=== PATIENT | male | born 1990 | race African-American/Black ===

== ENCOUNTER 2016-09-14 20:23 | Emergency (ER) | payer OTHER ==
--- NOTE | 2016-09-14 20:28 | PHYS DOC ---
General Stated Complaint: TAIL BONE INJURY Time Seen by MD: 20:27 Source: patient Problems: History of Present Illness Initial Comments Patient here for tailbone pain. Patient was playing basketball about a half- hour prior to arrival in emergency department when he fell on his tailbone. He says it hurts to walk. He had position himself an awkward fashion to drive himself here. His pain is located mostly over the low sacrum and coccyx area. He 's had no opportunity to the bathroom since. There's been no incontinence and no change amount of bladder habits. He says it hurts to move his legs and to walk, but he has no distal complaints of weakness or tingling within the lower extremities. He has no abdominal pain nausea vomiting, or other injuries or complaints noted at this time. Other than present for care there's been nothing done for this prior to arrival in the ER no other factors other than walking sitting or motion increase or decrease of symptoms. Patient's past history is otherwise unremarkable. He is a nonsmoker and nonuser of ethanol. Allergies: Coded Allergies: No Known Allergies (Verified Allergy, Unknown, 09/14/16) Past Medical History Medical History: no pertinent history Social History Smoker: non-smoker Alcohol: none Review of Systems Constitutional: no symptoms reported Gastrointestinal: no symptoms reported Genitourinary: no symptoms reported Musculoskeletal: see HPI Skin: no symptoms reported Psychiatric/Neurological: no symptoms reported Physical Exam General Appearance: WD/WN, mild distress Gastrointestinal: non tender, soft, no organomegaly Back: no CVA tenderness, no vertebral tenderness, other Extremities: non-tender, normal inspection, no pedal edema Neurologic/Psychiatric: no motor/sensory deficits, alert, normal mood/affect, oriented x 3 Skin: normal color Lymphatic: no adenopathy Comments Generally this is a well-developed well-nourished black male who does look to be in mild to moderate discomfort with coccyx pain. He is reluctant to sit or lay down, and he stands bent over on the bed. Vitals are as noted. Pertinent findings on physical exam shows the abdomen is soft and nontender without mass or megaly. There is no perineal findings. Back shows no distinct CVA tenderness. He is mildly tender over the lumbosacral and moderately so over the coccyx area. There is no signs of bruising or deformity noted. There is no tenderness over the sacral wings or the lower lumbar spine. The pelvis stable to rock and compression. Neurologic exam shows an to be alert and oriented 4. DTRs are 1+ were 4+ and equal bilaterally within the lower extremities. Strength 5 over 5 equal sites tested, some duration decrease due to pain in the coccygeal area. There are no gross sensory deficits. He is noted to ambulate in the ER, albeit bent over with pain from the coccyx area. Remainder of physical exam is clinically unremarkable. Orders, Labs, Meds Old charts note no prior ER visits within the current system. X-rays of the sacrum and coccyx show no acute fracture dislocation per the emergency physician. 2130 Patient reports some mild relief with Toradol and Norflex. I discussed the patient most likely diagnosis of coccyx contusion. Explain that these do certainly hurt, and we'll be happy to give him prescription for some pain medication, Lortab, at home. Pharmacies are closed give him an additional tablet tonight. He does have a ride home. Discussed how these can cause constipation and constipation worsening coccyx pain, I will also write him a prescription for Colace. He voiced understanding of home care including rest, ice to the areas of discomfort, sitting on an inflatable ring or doughnut. He voices understanding need to follow up with primary care or return to the ER sooner as needed if worsening anyway. He looks uncomfortable but stable, neurologically intact, and okay for discharge home at this time. TYESHA DALE MD Sep 14, 2016 20:28
[2016-09-14 20:36] VITALS: BP 133/90
[2016-09-14] MEDS ORDERED: ORPHENADRINE CITRATE 60 MG/2 ML VIAL. ONE (20:47)
[2016-09-14] MEDS ORDERED: KETOROLAC 60 MG/2 ML VIAL. IM ONE (20:48)
[2016-09-14] MEDS: KETOROLAC 60 MG/2 ML VIAL. IM ONE (20:52)
[2016-09-14] MEDS: ORPHENADRINE CITRATE 60 MG/2 ML VIAL. IM ONE (20:52)
[2016-09-14] MEDS: HYDROCODONE/APAP 10/325 TABLET. PO ONE (21:55)
--- NOTE | 2016-09-15 08:10 | RAD ---
Sacrococcygeal spine, 3 views, 09/14/2016: History: Pain, injury No fracture is identified. The presacral soft tissues are unremarkable. IMPRESSION: No acute abnormality is detected.
== END 2016-09-14 22:00 | disposition home or self-care (01) ==
LOC: ER 20:30
DX: M53.3 Sacrococcygeal disorders, not elsewhere classified (principal); W19.XXXA Unspecified fall, initial encounter; Y93.67 Activity, basketball; Y92.89 Other specified places as the place of occurrence of the external cause; Y99.8 Other external cause status
CPT/HCPCS: 72220; 96372; 99284; J1885; J2360

== ENCOUNTER 2017-12-18 14:02 | Emergency (ER) | payer OTHER ==
[~2017-12-18] VITALS: Ht 172.7 cm; Wt 86.2 kg
[2017-12-18 14:02] VITALS: BP 134/72
[2017-12-18] MEDS ORDERED: CYCLOBENZAPRINE 10 MG TABLET. PO ONE (14:45)
[2017-12-18] MEDS ORDERED: NAPROXEN 500 MG TABLET PO ONE (14:45)
[2017-12-18] MEDS ORDERED: CYCL-331 PO (14:56)
[2017-12-18] MEDS ORDERED: NAPR-683 PO (14:56)
--- NOTE | 2017-12-18 14:56 | PHYS DOC ---
Past History Past Medical History: No Pertinent History Past Surgical History: Other Alcohol Use: None Drug Use: None Adult General Chief Complaint Chief Complaint: GROIN PAIN HPI HPI Patient is a [27] year old [male] who presents with left groin pain. Patient states he was playing basketball and felt pain in left groin that gradually getting worse. Patient denies testicle injury, testicle pain or swelling, history of the same pain, urinary symptoms, fever and chills, abdominal pain, nausea and vomiting. Patient rated his pain 7/10 and denies taking any pain medication prior to arrival to ER. Review of Systems Review of Systems Constitutional: Denies fever or chills [] Eyes: Denies change in visual acuity, redness, or eye pain [] HENT: Denies nasal congestion or sore throat [] Respiratory: Denies cough or shortness of breath [] Cardiovascular: No additional information not addressed in HPI [] GI: Denies abdominal pain, nausea, vomiting, bloody stools or diarrhea [] : Denies dysuria or hematuria [] Musculoskeletal: Denies back pain or joint pain [] Integument: Denies rash or skin lesions [] Neurologic: Denies headache, focal weakness or sensory changes [] Endocrine: Denies polyuria or polydipsia [] All other systems were reviewed and found to be within normal limits, except as documented in this note. Allergies Allergies Allergies Coded Allergies Type Severity Reaction Last Updated Verified No Known Allergies Allergy Unknown 09/14/16 Yes Physical Exam Physical Exam Constitutional: Well developed, well nourished, mild distress, non-toxic appearance. [] HENT: Normocephalic, atraumatic Eyes: PERRLA, EOMI, conjunctiva normal, no discharge. [] Neck: Normal range of motion, no tenderness, supple, no stridor. [] Cardiovascular:Heart rate regular rhythm, no murmur [] Lungs & Thorax: Bilateral breath sounds clear to auscultation [] Abdomen: Bowel sounds normal, soft, no tenderness, no masses, no pulsatile masses, genital exam without abnormal finding consistent with or penis or sign of injury [] Skin: Warm, dry, no erythema, no rash. [] Back: No tenderness, no CVA tenderness. [] Extremities:mild tenderness in left thigh in medial of upper thigh, no cyanosis, no clubbing, ROM intact, no edema. [] Neurologic: Alert and oriented X 3, normal motor function, normal sensory function, no focal deficits noted. [] Psychologic: Affect normal, judgement normal, mood normal. [] Current Patient Data Vital Signs Vital Signs Date Time Temp Pulse Resp B/P (MAP) Pulse Ox O2 Delivery O2 Flow Rate FiO2 12/18/17 14:27 20 Room Air 12/18/17 14:02 97.9 79 97 EKG EKG [] Radiology/Procedures Radiology/Procedures [] Course & Med Decision Making Course & Med Decision Making discharge: I've spoken with the patient and/or caregivers. I've explained the patient's condition, diagnosis and treatment plan based on information available to me at this time. I've answered the patient's and/or caregivers questions and addressed any concerns. The patient and/or caregivers have a good understanding the patient's diagnosis, condition and treatment plan as can be expected at this point. Vital signs have been stabilized. The patient's condition is stable for discharge from the emergency department. The patient will pursue further outpatient evaluation with her primary care provider or other designated consulting physician as outlined in the discharge instructions. Patient and/or caregivers are agreeable to this plan of care and follow-up instructions have been explained in detail. The patient and/or caregivers have received these instructions in written format and expressed understanding of these discharge instructions. The patient and her caregivers are aware that if any significant change in condition or worsening of symptoms should prompt him to immediately return to this of the closest emergency department. If an emergent department is not readily available I would encourage him to call 911. Dragon Disclaimer Dragon Disclaimer This electronic medical record was generated, in whole or in part, using a voice recognition dictation system. Departure Departure: Impression: Primary Impression: Strain of left inguinal muscle Disposition: HOME, SELF-CARE (At 1500) Condition: STABLE Referrals: JUAN HANNON (PCP) Patient Instructions: Muscle Strain Additional Instructions: Apply ice on the affected area Follow-up with your primary care physician in 3-5 days Return to ER if not getting better Scripts Naproxen (NAPROSYN) 500 Mg Tablet 1 TAB PO BID, #20 TAB 2 Refills Prov: MARINA DONAHUE MD 12/18/17 Cyclobenzaprine Hcl (CYCLOBENZAPRINE HCL) 10 Mg Tablet 1 TAB PO TID, #30 TAB Prov: MARINA DONAHUE MD 12/18/17 MARINA DONAHUE MD Dec 18, 2017 14:56
== END 2017-12-18 15:05 | disposition home or self-care (01) ==
LOC: ER 14:02
DX: S76.912A Strain of unspecified muscles, fascia and tendons at thigh level, left thigh, initial encounter (principal); X58.XXXA Exposure to other specified factors, initial encounter; Y93.89 Activity, other specified; Y99.8 Other external cause status; Y92.89 Other specified places as the place of occurrence of the external cause
CPT/HCPCS: 99283